=== PATIENT | female | born 1955 | race Caucasian/White ===

== ENCOUNTER → 2017-06-07 | Outpatient (CLI) | payer BC, OTHER ==
[~2017-06-07] MED LIST: BUPIVACAINE MPF 0.25% 10 ML VIAL. ONE; LIDOCAINE 1% PF 30 ML VIAL. ONE
== END | disposition home or self-care (01) ==
LOC: SURG 13:03
PROVIDERS: ATTEND Anesthesiology
DX: M47.816 Spondylosis without myelopathy or radiculopathy, lumbar region (principal); I10 Essential (primary) hypertension; Z90.710 Acquired absence of both cervix and uterus; Z88.2 Allergy status to sulfonamides; M19.90 Unspecified osteoarthritis, unspecified site; F32.9 Major depressive disorder, single episode, unspecified; Z98.890 Other specified postprocedural states
CPT/HCPCS: 64493; 64494; J2001; J3490

== ENCOUNTER → 2017-06-21 | Outpatient (CLI) | payer BC, OTHER | END | disposition home or self-care (01) | LOC: SURG 13:58 | PROVIDERS: ATTEND Anesthesiology | DX: M47.817 Spondylosis without myelopathy or radiculopathy, lumbosacral region (principal); M51.36 Other intervertebral disc degeneration, lumbar region | CPT/HCPCS: 99214 ==

== ENCOUNTER 2017-07-23 12:16 | Emergency (ER) | payer BC, OTHER ==
[~2017-07-23] VITALS: Ht 162.6 cm; Wt 110.0 kg
[2017-07-23] MEDS ORDERED: IV NORMAL SALINE 1,000ML 1,000 ML IV ONE (13:00)
[2017-07-23] MEDS ORDERED: ACETAMINOPHEN 325 MG TABLET PO ONE (13:00)
--- NOTE | 2017-07-23 13:21 | RAD ---
Chest, 2 views, 07/23/2017: HISTORY: Cough, fever The heart is mildly enlarged. There is calcific plaquing of the aorta. The pulmonary vascularity is at the upper limits of normal. No pulmonary consolidation is seen. There is no evidence of pleural fluid. IMPRESSION: Mild cardiomegaly with borderline vascular congestion. Electronically signed by: Temo Wheat MD (07/23/2017 1:18 PM) [facility]
[2017-07-23 14:03] LABS: BASO # 0.1 x10^3/uL (0.0-0.2); BASO % 0 % (0-3); EOS # 0.1 x10^3/uL (0.0-0.7); EOS % 1 % (0-3); HEMATOCRIT 40.8 % (36.0-47.0); HEMOGLOBIN 13.5 g/dL (12.0-15.5); LYMPH # 2.7 x10^3/uL (1.0-4.8); LYMPH % 15 % (24-48); MEAN CORPUSCULAR HEMOGLOBIN 30 pg (25-35); MEAN CORPUSCULAR HGB CONC 33 g/dL (31-37); MEAN CORPUSCULAR VOLUME 91 fL (79-100); MONO # 0.8 x10^3/uL (0.0-1.1); MONO % 4 % (0-9); NEUT # 14.6 x10^3uL (1.8-7.7); NEUT % 80 % (31-73); PLATELET COUNT 258 x10^3/uL (140-400); RED CELL DISTRIBUTION WIDTH 13.5 % (11.5-14.5); WHITE BLOOD COUNT 18.3 x10^3/uL (4.0-11.0)
[2017-07-23 14:20] LABS: ALBUMIN 3.2 g/dL (3.4-5.0); ALBUMIN/GLOBULIN RATIO 0.6 (1.0-1.7); CALCIUM 8.7 mg/dL (8.5-10.1); CREATININE 0.9 mg/dL (0.6-1.0); GFR 63.4; POTASSIUM 3.8 mmol/L (3.5-5.1); TOTAL BILIRUBIN 0.4 mg/dL (0.2-1.0); TOTAL PROTEIN 8.2 g/dL (6.4-8.2)
[2017-07-23 14:36] LABS: % BANDS 2 % (0-9); % LYMPHS 19 % (24-48); % MONOS 3 % (0-10); % SEGS 76 % (35-66); PLT ESTIMATE ADEQUATE (ADEQUATE)
[2017-07-23 14:37] LABS: TOXIC GRANULATION SLIGHT
[2017-07-23 14:57] LABS: BILIRUBIN,URINE NEG (NEG); CLARITY,URINE HAZY; COLOR,URINE YELLOW; GLUCOSE,URINE NEG (NEG); NITRITE,URINE NEG (NEG); RBC,URINE OCC /HPF (0-2); UROBILINOGEN,URINE 1 mg/dL (0.2 mg/dL)
[2017-07-23 14:58] LABS: BACTERIA,URINE FEW /HPF (0-FEW); SQUAMOUS EPITHELIAL CELL,UR OCC /LPF
[2017-07-23 15:45] VITALS: BP 140/76
--- NOTE | 2017-07-23 16:20 | PHYS DOC ---
Past History Past Medical History: Cancer, Hypertension Past Surgical History: Hysterectomy Alcohol Use: None Drug Use: None Adult General Chief Complaint Chief Complaint: HEADACHE HPI HPI Patient is a 62 YO F WITH HX OF NONHODGKINS LYMPHOMA THAT IS NOT CURRENTLY BEING TREATED JUST BEING WATCHED, APPARENTLY ALSO HX OF MENINGITIS A CHILD. P/W TWO DAYS OF COUGH HEADACHE POSTERIOR NECK AND HEAD PAIN. AND FEVER SHE SAYS UP TO 102.2 LAST NIGHT. SHE HAS BEEN USING OTC AGENTS WITH SOME RELIEF. NO DYSURIA NO VOMITNIG OR DIARRHEA. NO ABDOMINAL PAIN. PT STATES SYMPTOMS ARE MODERATE. Review of Systems Review of Systems Constitutional: DHPI Eyes: Denies change in visual acuity, redness, or eye pain [] HENT: NEG SORE THROAT and Respiratory: HPI Cardiovascular: No additional information not addressed in HPI [] GI: Denies abdominal pain, nausea, vomiting, bloody stools or diarrhea [] : Denies dysuria or hematuria [] Musculoskeletal: BACK PAIN AFTER SITTING ON THE STRETCHER IN THE BED. Integument: Denies rash or skin lesions [] Neurologic:HPI All other systems were reviewed and found to be within normal limits, except as documented in this note. Current Medications Current Medications Current Medications Medications (Trade) Dose Ordered Sig/Korin Start Time Stop Time Status Last Admin Dose Admin Acetaminophen (Tylenol) 650 mg 1X ONCE 07/23/17 13:00 07/23/17 13:08 DC 07/23/17 13:00 650 MG Sodium Chloride 1,000 ml @ 1,000 mls/hr 1X ONCE 07/23/17 13:00 07/23/17 13:59 DC 07/23/17 13:00 1,000 MLS/HR Allergies Allergies Allergies Coded Allergies Type Severity Reaction Last Updated Verified Sulfa (Sulfonamide Antibiotics) Allergy Unknown 07/23/17 Yes Physical Exam Physical Exam Constitutional: Well developed, well nourished, no acute distress, non-toxic appearance. [] HENT: Normocephalic, atraumatic, bilateral external ears normal, oropharynx moist, no oral exudates, nose normal. [] Eyes: PERRLA, EOMI, conjunctiva normal, no discharge. [] Neck: Normal range of motion, no tenderness, VERY supple, no stridor. [] Cardiovascular:Heart rate regular rhythm, no murmur [] Lungs & Thorax: Bilateral breath sounds clear to auscultation [] Abdomen: Bowel sounds normal, soft, no tenderness, no masses, no pulsatile masses. [] Skin: Warm, dry, no erythema, no rash. [] Back: No tenderness, no CVA tenderness. [] Extremities: No tenderness, no cyanosis, no clubbing, ROM intact, no edema. [] Neurologic: Alert and oriented X 3, normal motor function, normal sensory function, no focal deficits noted. [] Psychologic: Affect normal, judgement normal, mood normal. [] Current Patient Data Vital Signs Vital Signs Date Time Temp Pulse Resp B/P (MAP) Pulse Ox O2 Delivery O2 Flow Rate FiO2 07/23/17 15:45 74 20 140/76 (97) 94 Room Air 07/23/17 12:36 98.7 Lab Results Laboratory Tests Test 07/23/17 13:58 07/23/17 14:09 White Blood Count 18.3 x10^3/uL (4.0-11.0) H Red Blood Count 4.50 x10^6/uL (3.50-5.40) Hemoglobin 13.5 g/dL (12.0-15.5) Hematocrit 40.8 % (36.0-47.0) Mean Corpuscular Volume 91 fL (79-100) Mean Corpuscular Hemoglobin 30 pg (25-35) Mean Corpuscular Hemoglobin Concent 33 g/dL (31-37) Red Cell Distribution Width 13.5 % (11.5-14.5) Platelet Count 258 x10^3/uL (140-400) Neutrophils (%) (Auto) 80 % (31-73) H Lymphocytes (%) (Auto) 15 % (24-48) L Monocytes (%) (Auto) 4 % (0-9) Eosinophils (%) (Auto) 1 % (0-3) Basophils (%) (Auto) 0 % (0-3) Neutrophils # (Auto) 14.6 x10^3uL (1.8-7.7) H Lymphocytes # (Auto) 2.7 x10^3/uL (1.0-4.8) Monocytes # (Auto) 0.8 x10^3/uL (0.0-1.1) Eosinophils # (Auto) 0.1 x10^3/uL (0.0-0.7) Basophils # (Auto) 0.1 x10^3/uL (0.0-0.2) Segmented Neutrophils % 76 % (35-66) H Band Neutrophils % 2 % (0-9) Lymphocytes % 19 % (24-48) L Monocytes % 3 % (0-10) Toxic Granulation Slight Platelet Estimate Adequate (ADEQUATE) Sodium Level 141 mmol/L (136-145) Potassium Level 3.8 mmol/L (3.5-5.1) Chloride Level 106 mmol/L (98-107) Carbon Dioxide Level 24 mmol/L (21-32) Anion Gap 11 (6-14) Blood Urea Nitrogen 16 mg/dL (7-20) Creatinine 0.9 mg/dL (0.6-1.0) Estimated GFR (Cockcroft-Gault) 63.4 BUN/Creatinine Ratio 18 (6-20) Glucose Level 103 mg/dL (70-99) H Lactic Acid Level 1.2 mmol/L (0.4-2.0) Calcium Level 8.7 mg/dL (8.5-10.1) Total Bilirubin 0.4 mg/dL (0.2-1.0) Aspartate Amino Transferase (AST) 30 U/L (15-37) Alanine Aminotransferase (ALT) 35 U/L (14-59) Alkaline Phosphatase 83 U/L (46-116) Total Protein 8.2 g/dL (6.4-8.2) Albumin 3.2 g/dL (3.4-5.0) L Albumin/Globulin Ratio 0.6 (1.0-1.7) L Urine Collection Type Unknown Urine Color Yellow Urine Clarity Hazy Urine pH 6.5 Urine Specific [place] 1.015 Urine Protein Trace (NEG-TRACE) Urine Glucose (UA) Neg mg/dL (NEG) Urine Ketones (Stick) Neg mg/dL (NEG) Urine Blood Neg (NEG) Urine Nitrite Neg (NEG) Urine Bilirubin Neg (NEG) Urine Urobilinogen Dipstick 1 mg/dL (0.2 mg/dL) Urine Leukocyte Esterase Small (NEG) Urine RBC Occ /HPF (0-2) Urine WBC 1-4 /HPF (0-4) Urine Squamous Epithelial Cells Occ /LPF Urine Bacteria Few /HPF (0-FEW) Urine Mucus Slight /LPF EKG EKG [] Radiology/Procedures Radiology/Procedures [] Impressions: Chest, 2 views, 07/23/2017: HISTORY: Cough, fever The heart is mildly enlarged. There is calcific plaquing of the aorta. The pulmonary vascularity is at the upper limits of normal. No pulmonary consolidation is seen. There is no evidence of pleural fluid. IMPRESSION: Mild cardiomegaly with borderline vascular congestion. Electronically signed by: Temo Wheat MD (07/23/2017 1:18 PM) [facility] DICTATED AND SIGNED BY: TEMO WHEAT MD DATE: 07/23/17 0452 CC: MANJEET SANON MD; LINA JACKSON MD ~ Course & Med Decision Making Course & Med Decision Making Pertinent Labs and Imaging studies reviewed. (See chart for details) 62 YO F WITH HX OF NONHODGKINS LYMPHOMA UNDER OBSERVATION ONLY HTN P/W FEVER COUGH AND HEADACHE FOR 2 DAYS. PT IS VERY WELL APPEARING. WBC 18 SHE SAYS SHE HAS HX OF HIGH WBC BUT SHE DOES NOT KNOW THE NUMBER, NO PRIORS IN OUR SYSTEM. HER NECK IS VERY SUPPLE, SHE IS WELL APPEARING NO MENTAL STATUS CHANGE S NOT IMMUNOCOMPROMISED. U/A ESSENTIALLY ENGATIVE. CXR NO CONSOLIDATING PNEUMONIA. PT HAS REASSURING VITALS SHE IS TREATED IN THE ER WITH FLUIDS AND TYLENOL AND HAS BASICALLY RESOLUTION OF HER SYMPTOMS. The patient and I talked in detail for close to 10 minutes regarding the working diagnosis of a nonspecific viral syndrome. No obvious evidence of bacterial infection other than the isolated leukocytosis. She and I did talk in detail about the possibility however remote of a meningitis. She does not appear to have bacterial meningitis at this time she is very well-appearing her neck is supple she does not have any mental status change I really do not suspect bacterial meningitis and I feel that the risk of the lumbar puncture likely outweighs any benefit. She strongly agrees with this and she really does not want to go that route anyway. She said she had a very similar spectrum of symptoms 8 years ago in [place] and she said it is mild And it came back totally negative. In light of the above I have told I think is okay for her to go home and to give her strict return precautions for increase in fever severe headache worsening symptoms in any way or change in mental status to come back right away. Otherwise I think at this point time she can stay hydrated take Tylenol as needed she'll be discharged with her who is very aware of the treatment plan and is also in agreement. Dragon Disclaimer Dragon Disclaimer This electronic medical record was generated, in whole or in part, using a voice recognition dictation system. Departure Departure: Impression: Primary Impression: Fever Disposition: HOME, SELF-CARE Condition: IMPROVED Patient Instructions: Fever, Adult Additional Instructions: RETURN FOR SEVERE HEADACHE PERSISTENT FEVER OR ANY OTHER NEW SYMTOMS OR CONCERNS. MANJEET SANON MD Jul 23, 2017 16:20
== END 2017-07-23 15:57 | disposition home or self-care (01) ==
LOC: ER 12:16
DX: R50.9 Fever, unspecified (principal); R51 Headache; M54.2 Cervicalgia; I10 Essential (primary) hypertension; Z85.72 Personal history of non-Hodgkin lymphomas; Z88.2 Allergy status to sulfonamides
CPT/HCPCS: 36415; 71046; 80053; 81001; 83605; 85007; 85025; 87040; 87086; 99285-25; J7030

== ENCOUNTER 2019-03-18 13:34 | Emergency (ER) | payer BC, OTHER ==
[~2019-03-18] VITALS: Ht 160 cm; Wt 110.0 kg
[2019-03-18 13:34] VITALS: BP 124/69
--- NOTE | 2019-03-18 13:53 | PHYS DOC ---
Past History Past Medical History: Cancer, Hypertension Additional Past Medical Histor: non-Hodgkin's lymphoma, neuropathy Past Surgical History: Hysterectomy Smoking: Non-smoker Alcohol Use: None Drug Use: None Adult General Chief Complaint Chief Complaint: KNEE INJURY HPI HPI Patient is a 64-year-old female who presents to the emergency department for evaluation of right knee pain. She states that she was walking on Tuesday this past week, and her right knee buckled and gave out. She did not fall or otherwise injure herself but she has had pain in her right knee since that time. Ambulation seems to worsen her pain and she is able to ambulate but very gingerly. She reports some paresthesias in her right leg which have been increasing with his she has a history of neuropathy at baseline. She does have a history of non-Hodgkin's lymphoma as well. She denies any back pain other numbness, weakness, or incontinence. Other than as noted above, there are no alleviating or exacerbating factors to her symptoms. Review of Systems Review of Systems Constitutional: Denies fever or chills [] Eyes: Denies change in visual acuity, redness, or eye pain [] HENT: Denies nasal congestion or sore throat [] Respiratory: Denies cough or shortness of breath [] Cardiovascular: No additional information not addressed in HPI [] GI: Denies abdominal pain, nausea, vomiting, bloody stools or diarrhea [] : Denies dysuria or hematuria [] Musculoskeletal: Denies back pain or joint pain, other than the right knee., [] Integument: Denies rash or skin lesions [] Neurologic: Denies headache, focal weakness or sensory changes, Other than the right lower extremity. [] Endocrine: Denies polyuria or polydipsia [] All other systems were reviewed and found to be within normal limits, except as documented in this note. Allergies Allergies Allergies Coded Allergies Type Severity Reaction Last Updated Verified Sulfa (Sulfonamide Antibiotics) Allergy Unknown 07/23/17 Yes Physical Exam Physical Exam PHYSICAL EXAM: CONSTITUTIONAL: Well developed, well nourished HEAD: normocephalic, atraumatic EENT: PERRL, EOMI. Conjunctivae normal color, sclerae non-icteric; moist mucous membranes. NECK: Supple, non-tender; no meningismus. LUNGS: Lungs CTA, breathing even and unlabored. Normal air movement. HEART: Regular rate and rhythm, no murmur CHEST: No deformity; non-tender ABDOMEN: The abdomen is soft, and non-tender, no masses or bruits. EXTREM: Normal ROM; no deformity, no calf tenderness. Normal pulses palpable in all extremities. There is no pedal edema. Range of motion of the right knee is intact. There is a strong dorsalis pedis pulse on the right. Straight leg raise is normal. There is no obvious joint effusion. There is mild diffuse tenderness to palpation of the right knee, but no ligamentous laxity to anterior, posterior, medial, or lateral stress. SKIN: No rash; no diaphoresis NEURO: Alert; normal speech and cognition; CN's grossly intact; there is mild decreased pinprick sensation on the right leg relative to the left, but sensation is present, the remainder of the sensory exam is unremarkable, strength is grossly intact without focal deficit in all extremities. BACK: No CVA TTP. EKG EKG [] Radiology/Procedures Radiology/Procedures [] Impressions: PROCEDURE: KNEE RIGHT 4V EXAM: Right knee, 3 views. HISTORY: Pain. COMPARISON: None. FINDINGS: 3 views of the right knee are obtained. There is tricompartmental spurring. There is patellofemoral compartment joint space narrowing and subchondral sclerosis. There is no fracture, dislocation or subluxation. There is a small joint effusion. There are vascular calcifications. IMPRESSION: 1. Mild patellofemoral compartment predominant tricompartmental osteoarthritis of the right knee. 2. Small right knee effusion. Course & Med Decision Making Course & Med Decision Making Pertinent Labs and Imaging studies reviewed. (See chart for details) []Patient remains stable. I discussed test results, the need for close follow- up, and return precautions. Dragon Disclaimer Dragon Disclaimer This electronic medical record was generated, in whole or in part, using a voice recognition dictation system. Departure Departure: Impression: Primary Impression: Knee strain Disposition: 01 HOME, SELF-CARE Condition: STABLE Referrals: LINA JACKSON MD (PCP) DONNA BAUTISTA II, MD Patient Instructions: Knee Immobilization, Knee Pain, Knee Sprain Additional Instructions: Follow-up with orthopedics at [facility], call [phone] to schedule an appointment. NIKHIL LAKHANI MD Mar 18, 2019 13:53
[2019-03-18] MEDS ORDERED: IBUPROFEN 400 MG TABLET. PO ONE (14:00)
--- NOTE | 2019-03-18 14:23 | RAD ---
EXAM: Right knee, 3 views. HISTORY: Pain. COMPARISON: None. FINDINGS: 3 views of the right knee are obtained. There is tricompartmental spurring. There is patellofemoral compartment joint space narrowing and subchondral sclerosis. There is no fracture, dislocation or subluxation. There is a small joint effusion. There are vascular calcifications. IMPRESSION: 1. Mild patellofemoral compartment predominant tricompartmental osteoarthritis of the right knee. 2. Small right knee effusion. Electronically signed by: Malorie Lantigua MD (03/18/2019 2:21 PM) [facility]
== END 2019-03-18 14:40 | disposition home or self-care (01) ==
LOC: ER 13:34
DX: S83.91XA Sprain of unspecified site of right knee, initial encounter (principal); M25.461 Effusion, right knee; Z85.9 Personal history of malignant neoplasm, unspecified; I10 Essential (primary) hypertension; G62.9 Polyneuropathy, unspecified; Z90.710 Acquired absence of both cervix and uterus; Z88.2 Allergy status to sulfonamides; W22.8XXA Striking against or struck by other objects, initial encounter; Y93.89 Activity, other specified; Y92.89 Other specified places as the place of occurrence of the external cause; Y99.8 Other external cause status
CPT/HCPCS: 29505; 73564; 99284